=== PATIENT | female | born 1960 | race Caucasian/White ===

== ENCOUNTER → 2020-04-21 | Outpatient (CLI) | payer BC ==
[~2020-04-21] MED LIST: ESTRADIOL2 MG PO
== END | disposition home or self-care (01) ==
LOC: LAB SHORT 19:27 → LAB 19:27
DX: L08.9 Local infection of the skin and subcutaneous tissue, unspecified (principal)
CPT/HCPCS: 87070; 87077; 87147; 87186; 87205

== ENCOUNTER 2020-04-26 12:43 | Emergency (ER) | payer BC ==
[~2020-04-26] VITALS: Ht 170.2 cm; Wt 109.8 kg
[2020-04-26] MEDS ORDERED: ESTRADIOL2 MG PO (13:53)
== END 2020-04-26 17:16 | disposition left against medical advice (07) ==
LOC: ER 12:43
DX: Z53.21 Procedure and treatment not carried out due to patient leaving prior to being seen by health care provider (principal)

== ENCOUNTER → 2024-06-24 | Outpatient (CLI) | payer OTHER ==
[~2024-06-24] MED LIST changes: +IBUP800 PO
[2024-06-24 15:31] LABS: Source, Urine Clean Catch
[2024-06-24 18:06] LABS: Appearance, Urine Hazy (Clear); Bilirubin, Urine Neg (Neg); Blood, Urine 1+ (Neg); Color, Urine Yellow (P-Yellow); Glucose Qualitative, Urine Neg (Neg); Ketones, Urine Neg (Neg); Leukocyte Esterase, Urine 2+ (Neg); Nitrite, Urine Neg (Neg); Protein, Urine 2+ (Neg); Urobilinogen, Urine NORM (Normal)
[2024-06-24 18:17] LABS: Calcium Oxalate Crystals Many /hpf; White Blood Cells, Urine 25-50 /hpf (0-5)
[2024-06-24 18:18] LABS: Bacteria Few /hpf; Red Blood Cells, Urine 0-2 /hpf (0-2); Squamous Epithelial Cells Rare /hpf (Few)
== END ==
LOC: LAB SHORT 15:07 → LAB 15:07
PROVIDERS: Family Medicine
DX: R30.0 Dysuria (principal)
CPT/HCPCS: 81001; 87086